=== PATIENT | female | born 1975 | race Caucasian/White ===

== ENCOUNTER 2018-10-17 17:47 | Emergency (ER) | payer BC ==
[~2018-10-17] VITALS: Ht 149.9 cm; Wt 68.0 kg
--- NOTE | ~2018-10-17 | EKG ---
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: as : 1975 Requested By: Soraya Leal Order Number: [id number] MD: Placido Ralph Measurements Intervals Byron Rate: 103 P: 69 VT: 119 QRS: 57 QRSD: 78 T: 31 QT: 349 QTc: 457 Interpretive Statements Sinus tachycardia Biatrial enlargement Minimal ST depression clinical correlation suggested Compared to ECG 11/15/2015 10:37:42 Atrial abnormality now present Electronically Signed On 10-18-2018 23:39:48 QA [employer] by Placido Ralph [email or web address] <ELECTRONICALLY SIGNED> By: Placido Ralph MD 10/18/18 2339 D: 11/1802 02 Placido Ralph MD /FRANCES
[~2018-10-17 17:47] MED LIST: BACTRIM DS TAB1 EACH PO; CLONAZEPAM 1 MG1 M1 PO; FLAGYL500 MG PO; FLEXERIL PO; GABAPENTIN100 MG PO; IBUPROFEN 800800 M1 PO; LABETALOL 100100 MG PO; LEXAPRO 10 MG T10 M1 PO; NORCO 5-325 TA1 EACH PO; PRENATAL COMPL1 EACH PO; VICODIN 5-3001 EACH PO; XANAX 1 MG TABLE1 MG PO; ZOFRAN ODT4 MG PO; [UNRECOGNIZED DRUG - OTHER] PO
[2018-10-17 18:20] LABS: BASOPHILS 0.9 % (0.0-2.0); EOSINOPHILS 1.3 % (0.0-3.0); HEMATOCRIT 39.1 % (37.0-47.0); LYMPHOCYTES 21.8 % (24.0-44.0); MCHC 33.2 g/dL (28.0-37.0); MCV 84.3 fL (80.0-100.0); MONOCYTES 5.4 % (1.0-8.0); PLATELET COUNT 274 thou/uL (150-400); POLYS 70.6 % (36.0-66.0); RBC 4.64 mil/uL (4.20-5.00); RDW 16.1 % (10.5-14.5); WBC 8.4 thou/uL (4.0-11.0)
[2018-10-17 18:26] LABS: URINE BILIRUBIN NEGATIVE (Negative); URINE BLOOD 3+ (Negative); URINE GLUCOSE-RANDOM* NEGATIVE (Negative); URINE KETONES NEGATIVE (Negative); URINE NITRITE-REFLEX NEGATIVE (Negative); URINE PROTEIN (DIPSTICK) TRACE (Negative); URINE SPECIFIC GRAVITY 1.015 (1.005-1.035); URINE UROBILINOGEN 0.2 E.U./dl (0.2-1.0)
[2018-10-17 18:27] LABS: URINE LEUKOCYTES-REFLEX 1+ (Negative)
[2018-10-17 18:28] LABS: URINE CLARITY CLOUDY; URINE COLOR REDDISH
[2018-10-17 18:29] LABS: BACTERIA-REFLEX 1-9 Few /HPF (None Seen); SQUAMOUS 0-3 Few /LPF (0-3); URINE RBC >20 Many /HPF (0-2); URINE WBC-REFLEX 0-5 Rare /HPF (0-5)
[2018-10-17 18:30] LABS: CASTS None Seen /LPF (None Seen); CRYSTALS None Seen /LPF (None Seen)
[2018-10-17 18:41] LABS: ALBUMIN 3.7 g/dL (3.4-5.0); ANION GAP 8 mmol/L (7-16); BUN 12 mg/dL (7-18); CHLORIDE 105 mmol/L (98-107); CO2 26 mmol/L (21-32); CREATININE 0.7 mg/dL (0.6-1.0); GLUCOSE 84 mg/dL (74-106); LIPASE 59 U/L (73-393); POTASSIUM 3.9 mmol/L (3.5-5.1); SGOT 25 U/L (15-37); SGPT 39 U/L (30-65); SODIUM 139 mmol/L (136-145); TOTAL BILIRUBIN 0.3 mg/dL (<0.1-1.0); TOTAL PROTEIN 7.5 g/dL (6.4-8.2); TROPONIN-I <0.06 ng/mL (<0.06)
[2018-10-17 19:57] LABS: URINE BILIRUBIN NEGATIVE (Negative); URINE BLOOD TRACE (Negative); URINE CLARITY CLEAR; URINE COLOR YELLOW; URINE GLUCOSE-RANDOM* NEGATIVE (Negative); URINE KETONES NEGATIVE (Negative); URINE LEUKOCYTES NEGATIVE (Negative); URINE NITRITE NEGATIVE (Negative); URINE PROTEIN (DIPSTICK) NEGATIVE (Negative); URINE SPECIFIC GRAVITY 1.025 (1.005-1.035); URINE UROBILINOGEN 0.2 E.U./dl (0.2-1.0)
[2018-10-17] MEDS ORDERED: NAPROSYN500 MG PO (20:05)
[2018-10-17 20:21] VITALS: BP 144/94
== END 2018-10-17 20:22 | disposition home or self-care (01) ==
LOC: ER 17:47
PROVIDERS: Physician Assistant; Student in an Organized Health Care Education/Training Program
DX: R10.13 Epigastric pain (principal); R10.2 Pelvic and perineal pain; M54.9 Dorsalgia, unspecified; G89.29 Other chronic pain; F17.210 Nicotine dependence, cigarettes, uncomplicated